=== PATIENT | female | born 1985 | race Caucasian/White ===

== ENCOUNTER 2017-10-31 08:00 | Outpatient (CLI) | payer OTHER | END 2017-10-31 08:01 | disposition home or self-care (01) | LOC: LAB.R 08:00 | PROVIDERS: ATTEND Obstetrics & Gynecology | DX: Z36.89 Encounter for other specified antenatal screening (principal) | CPT/HCPCS: 87081 ==

== ENCOUNTER 2017-11-25 22:01 | Inpatient (IN) | payer OTHER ==
[2017-11-25] MEDS ORDERED: SODIUM CHLORIDE FLUSH 0.9% 10 ML SYRINGE IVP PRN (22:20)
[2017-11-25] MEDS: LACTATED RINGERS 1,000 ML IV SCH ×2 (22:50→23:32)
[2017-11-25 22:52] LABS: BASOPHILS % (AUTO) 0.3 %; EOSINOPHILS # (AUTO) 0.1 10^3/uL (0.0-0.7); EOSINOPHILS % (AUTO) 1.2 %; HGB - HEMOGLOBIN 11.3 g/dL (12.0-16.0); LYMPHOCYTES # (AUTO) 2.5 10^3/uL (1.5-3.5); LYMPHOCYTES % (AUTO) 21.5 %; MEAN CORPUSCULAR HEMOGLOBIN 30.5 pg (27.0-31.0); MEAN CORPUSCULAR HGB CONC 33.8 g/dL (32.0-36.0); MEAN CORPUSCULAR VOLUME 90.2 fL (81.0-99.0); MEAN PLATELET VOLUME 8.9 fL (7.9-10.8); MONOCYTES # (AUTO) 0.6 10^3/uL (0.0-1.0); MONOCYTES % (AUTO) 5.1 %; NEUTROPHILS # (AUTO) 8.2 10^3/uL (1.5-6.6); NEUTROPHILS % (AUTO) 71.9 %; PLT - PLATELET COUNT 187 10^3/uL (130-450); RED CELL DISTRIBUTION WIDTH 13.7 % (12.0-15.0); WHITE BLOOD COUNT 11.4 x10^3/uL (4.8-10.8)
[2017-11-25] MEDS ORDERED: ROPIVACAINE 0.2% PF 10 ML VIAL EPI ONE (23:00)
[2017-11-25] MEDS ORDERED: OXYTOCIN/SODIUM CHLORIDE 250 ML IV ONE (23:11)
[2017-11-25] MEDS ORDERED: fent/BUPIV 2 MCG/0.125% 250 ML EP ONE (23:40)
[2017-11-25] MEDS ORDERED: LACTATED RINGERS 500 ML IV ONE (23:51)
[2017-11-25] MEDS ORDERED: METOCLOPRAMIDE 10 MG/2 ML VIAL IVP PRN (23:51)
[2017-11-25] MEDS ORDERED: diphenhydrAMINE INJ 50 MG/ML VIAL IVP PRN (23:51)
[2017-11-25] MEDS ORDERED: ONDANSETRON 4 MG/2 ML VIAL IVP PRN (23:51)
[2017-11-25] MEDS ORDERED: NALOXONE 0.4 MG/ML VIAL IVP PRN (23:51)
[2017-11-25] MEDS ORDERED: fent/BUPIV 2 MCG/0.125% 250 ML EP PRN (23:51)
[2017-11-25] MEDS ORDERED: ePHEDrine 50 MG/ML VIAL IVP PRN (23:51)
[2017-11-25] MEDS ORDERED: NALBUPHINE 20 MG/ML AMP IVP PRN (23:51)
[2017-11-26] MEDS ORDERED: OXYTOCIN/SODIUM CHLORIDE 250 ML IV ONE (00:17)
[2017-11-26] MEDS ORDERED: WITCH HAZEL/GLYCERIN 1 EACH MED..PAD TOP PRN (00:17)
[2017-11-26] MEDS ORDERED: HYDROCORTISONE/PRAMOXINE 10 GM PR PRN (00:17)
[2017-11-26] MEDS ORDERED: diphenhydrAMINE 25 MG CAPSULE PO PRN (00:17)
[2017-11-26] MEDS: IBUPROFEN 600 MG TABLET PO SCH ×4 (02:05→21:14)
[2017-11-26] MEDS ORDERED: SODIUM CHLORIDE FLUSH 0.9% 10 ML SYRINGE IVP SCH (06:00)
[2017-11-26] MEDS: ACETAMINOPHEN 500 MG TABLET PO SCH ×3 (06:08→22:00)
[2017-11-26] MEDS: LACTATED RINGERS 1,000 ML IV SCH ×2 (08:39→23:35)
[2017-11-26] MEDS ORDERED: SODIUM CHLORIDE FLUSH 0.9% 10 ML SYRINGE IVP ONE (08:41)
--- NOTE | 2017-11-26 09:41 | PROVIDER PROGRESS NOTE ---
Subjective - Prog Note Date Prog Note Date: 11/26/17 Prog Note Time: 09:00 - Subjective Pt reports feeling: Improved Subjective: Patient is up in bed and nursing without difficulty. She and her are happy with the outcome. Obvious bonding. No reported difficulties with nursing and vaginal bleeding has subsided. Overall she is recovering well from her delivery and will require 1 more day of supportive care. Objective - Vital Signs/Intake & Output Vital Signs: Vital Signs x48h Temp Pulse Resp BP Pulse Ox 11/26/17 08:24 97.7 F 76 16 122/70 100 11/26/17 03:45 88 20 128/71 99 11/26/17 02:50 98.2 F 71 20 123/68 97 11/26/17 01:45 78 20 107/65 Intake & Output: Intake & Output 11/23/17 11/24/17 11/25/17 11/26/17 23:59 23:59 23:59 23:59 Intake Total 1000 1750 Output Total 350 Balance 1000 1400 - Lab Results Fish Bones: 11/25/17 22:30 Other Labs: Lab Results x24hrs 11/25/17 Range/Units 22:30 WBC 11.4 H (4.8-10.8) x10^3/uL RBC 3.70 L (4.20-5.40) 10^6/uL Hgb 11.3 L (12.0-16.0) g/dL Hct 33.4 L (37.0-47.0) % MCV 90.2 (81.0-99.0) fL MCH 30.5 (27.0-31.0) pg MCHC 33.8 (32.0-36.0) g/dL RDW 13.7 (12.0-15.0) % Plt Count 187 (130-450) 10^3/uL MPV 8.9 (7.9-10.8) fL Neut # 8.2 H (1.5-6.6) 10^3/uL Lymph # 2.5 (1.5-3.5) 10^3/uL [place] # 0.6 (0.0-1.0) 10^3/uL Eos # 0.1 (0.0-0.7) 10^3/uL Baso # 0.0 (0.0-0.1) 10^3/uL Absolute Nucleated RBC 0.00 x10^3/uL Nucleated RBC % 0.0 /100WBC
[2017-11-26] MEDS: HYDROcod/ACETAM 5/325 MG TABLET PO PRN ×2 (18:57→23:42)
--- NOTE | 2017-11-26 20:02 | HISTORY & PHYSICAL EXAMINATION ---
DATE OF SERVICE: 11/25/2017 Physician: Live Delgado MD DATE OF ADMISSION: 11/25/2017. DIAGNOSIS: Term , active labor. HISTORY OF PRESENT ILLNESS: The patient is a 32-year-old , 2, para 1-0-0-1, woman at 39 weeks' 4 days' gestation who has had regular care at the [facility] and the [facility]. Care began at 30 weeks and proceeded in an uncomplicated fashion without concerns. LABS: Blood type O positive, antibody screen negative, rubella immune, hepatitis B surface antigen negative, HIV negative, hep C negative, RPR negative, GC chlamydia negative. Pap smear was ASCUS. Glucose challenge test normal at 107. CF screen negative. First was delivered at 41 weeks, yielding a living female infant weighing 3770 grams without problems. Currently, the patient has no symptoms of preeclampsia. She has had no recent illnesses, UTI symptoms or fever. PAST MEDICAL HISTORY: No chronic disease history. PAST SURGICAL HISTORY: Appendectomy in 2005, tonsillectomy 2013. FAMILY HISTORY: Diabetes. No inheritable disease history. SOCIAL HISTORY: A [employer] dependent. No drug, tobacco or alcohol use. REVIEW OF SYSTEMS CONSTITUTIONAL: Negative. HEENT: Negative. HEART: Negative. LUNGS: Negative. GASTROINTESTINAL: Negative. GENITOURINARY: Negative. Note: ASCUS Pap smear was investigated with a colposcopic biopsy and has spontaneously reverted to normal. MUSCULOSKELETAL: Negative. NEUROLOGIC: Negative. PHYSICAL EXAMINATION: GENERAL: Well groomed, pleasant. Evident labor pains. in attendance. HEENT: Supple neck, no thyromegaly. Dentition in good repair. LUNGS: Clear to auscultation. CARDIAC: Regular, no murmur, no gallop. BREASTS: No reported mass. Full. ABDOMEN: Nondistended. No hepatosplenomegaly. UTERUS: Appropriate size for term, about 39 cm. Normal resting tone. Moderate contractions every 3 minutes. External monitor strip 130-140, good variability, some accelerations, occasional variable deceleration, overall category 1 to category 2. EXTERNAL GENITALIA: No lesions. VAGINA: No blood or discharge or leaking fluid. CERVIX: 6 cm, +1 station, 80% effaced. EXTREMITIES: Minimal pedal edema. No finger edema. No rash. NEUROLOGIC: Grossly intact. Initial labs pending. ASSESSMENT AND PLAN: This is a term that has had essentially normal course. She is currently in active labor with a reassuring strip. She desires epidural. PLAN 1. Obtain a platelet count now in order to be ready for anesthesia. 2. Baseline labs. 3. Supportive care. TD: 11/26/2017 21:01
[2017-11-27] MEDS: IBUPROFEN 600 MG TABLET PO SCH ×3 (03:02→13:06)
[2017-11-27] MEDS: ACETAMINOPHEN 500 MG TABLET PO SCH ×2 (05:43→13:06)
--- NOTE | 2017-11-27 08:34 | PROCEDURE REPORT ---
DATE OF SERVICE: 11/25/2017 Physician: Live Delgado MD PRE-DELIVERY DIAGNOSES: 1. Term . 2. Active labor. POST-DELIVERY DIAGNOSES: 1. Term . 2. Active labor. 3. Grade 3 placenta. 4. Left arm compound presentation. PROCEDURE: Vaginal delivery over an intact perineum of a living female infant. HOUSE PAINTER: Live Delgado MD, FACOG, [facility] ANESTHESIA: Sy Joseph, certified nurse hot head machine operator; epidural. ESTIMATED BLOOD LOSS: 300 mL COMPLICATIONS: None. FINDINGS: At 2359 hours, a living female was born weighing 8lbs 1oz and scoring Apgars of 8/9. There was no trauma or congenital anomalies noted. There was a slight bruising of the head due to the rapid second stage of labor. Placenta was delivered intact with 3-vessel cord. Placenta was grade 3. Inspection of the female genital tract found no lacerations. Uterus responded well to massage and Pitocin. TECHNIQUE: Patient was admitted around 10:30 at 7 cm and given an epidural anesthetic. She progressed rapidly to complete and began to have the urge to push. When examined at 2340 hours, she was complete and +2 station. The patient assumed dorsal lithotomy position and was prepped and draped. She began to push with excellent effort and rapidly brought the head to the perineum. There was atraumatic . Shoulders were delivered without difficulty. left arm was in a compound presentation. Infant was placed on the maternal abdomen. Once the cord had begun to stop pulsating, it was doubly clamped and transected. Cord blood sample was sent. Delivery of the placenta was a bit slower, but completed at X time. Placenta was inspected and found to be grade 3. Uterus responded well to massage and Pitocin. Mother, child and father all bonded well. She began to nurse without difficulty. TD: 11/27/2017 09:33 [facility]
[2017-11-27] MEDS: HYDROcod/ACETAM 5/325 MG TABLET PO PRN ×2 (09:04→13:05)
[2017-11-27 10:01] VITALS: BP 122/70
--- NOTE | 2017-11-27 10:12 | Discharge Plan ---
Discharge Plan Disposition: 01 Home, Self Care Condition: Good Diet: Regular Activity Restrictions: No Restrictions Shower Restrictions: Yes Driving Restrictions: Yes Weight Bearing: Full Weight Additional Instructions or Follow Up instructions: Patient to avoid sitting on hard surfaces.She can self massage the levator plate muscles and the coccygeal tip through the vagina.Continue to take Motrin 600 every 6 hours [id number] for at least 10 days. Coccydynia will be reevaluated on her 2 week appointment No Smoking: If you smoke, Please STOP! Call for help. Follow-up with: Live Delgado MD [Provider Admit Priv/Credential] - Te Yanes MD [Primary Care Provider] -
--- NOTE | 2017-11-27 10:18 | PROVIDER PROGRESS NOTE ---
Subjective - General Admit Date: 11/25/17 Procedure Date: 11/26/17 Post Op Days: 1 Procedure Performed: Normal vaginal delivery without lacerations - Review of Systems Wound/Incisions: positive: Healing well Drain Type: 0 General: positive: No symptoms HEENT: positive: No symptoms Pulmonary: positive: No symptoms Cardiovascular: positive: No symptoms Gastrointestinal: positive: No symptoms Genitourinary: positive: No symptoms, Other (Feels sore but pain medication adequate) Musculoskeletal: positive: No symptoms Skin: positive: No symptoms Psychiatric: positive: No symptoms Objective - Patient Data Vital Signs: Vital Signs x48h Temp Pulse Resp BP Pulse Ox 11/27/17 09:53 99.0 F 74 16 122/70 98 Weight: Weight 11/25/17 11/26/17 11/27/17 23:59 23:59 23:59 Weight (kg) 110.677 kg Intake & Output: Intake and Output Totals x24h 11/25/17 11/26/17 11/27/17 23:59 23:59 23:59 Intake Total 1000 1750 Output Total 350 Balance 1000 1400 - Lab Results Lab Results: 11/25/17 22:30 - Current Medications Current Medications: Current Medications Generic Name Dose Route Start Last Admin Trade Name Freq PRN Reason Stop Dose Admin Acetaminophen 1,000 mg 11/26/17 01:00 11/27/17 05:43 Tylenol PO 1,000 mg Q8H JANINE Administration Acetaminophen/Hydrocodone Bitart 1 tab 11/26/17 00:17 11/27/17 09:04 [place] 5/325 PO 1 tab Q4HR PRN Administration PAIN Lactated Ringer's 1,000 mls @ 100 mls/hr 11/26/17 01:00 11/26/17 23:35 Lr IV Not Given .Q10H JANINE Ibuprofen 600 mg 11/26/17 01:00 11/27/17 09:04 Motrin PO 600 mg Q6H JANINE Administration Witch Bebe/Glycerin 1 each 11/26/17 00:17 11/26/17 06:09 Tucks TOP 1 each QID PRN Administration Hemorrhoids Exam - Exam Vital Signs: Vital Signs (72 hours) 11/25/17 11/25/17 11/26/17 22:34 23:15 00:12 Temperature 98.4 F Heart Rate [ 90 102 H 88 Apical] Heart Rate [ Monitoring electrodes] Respiratory 19 20 24 Rate Blood Pressure 139/77 H 139/77 H 123/69 [Right Brachial artery] O2 Saturation 99 100 99 11/26/17 11/26/17 11/26/17 00:20 00:30 00:45 Temperature Heart Rate [ 87 75 79 Apical] Heart Rate [ Monitoring electrodes] Respiratory 18 20 20 Rate Blood Pressure 119/73 115/58 L 127/63 [Right Brachial artery] O2 Saturation 99 100 99 11/26/17 11/26/17 11/26/17 01:00 01:15 01:30 Temperature Heart Rate [ 81 84 67 Apical] Heart Rate [ Monitoring electrodes] Respiratory 18 18 18 Rate Blood Pressure 125/68 118/57 L 119/85 H [Right Brachial artery] O2 Saturation 98 11/26/17 11/26/17 11/26/17 01:45 02:50 03:45 Temperature 98.2 F Heart Rate [ 78 71 88 Apical] Heart Rate [ Monitoring electrodes] Respiratory 20 20 20 Rate Blood Pressure 107/65 123/68 128/71 [Right Brachial artery] O2 Saturation 97 99 11/26/17 11/26/17 11/26/17 08:24 16:05 21:26 Temperature 97.7 F 98.8 F 98.1 F Heart Rate [ 76 85 71 Apical] Heart Rate [ Monitoring electrodes] Respiratory 16 16 18 Rate Blood Pressure 122/70 122/61 124/78 [Right Brachial artery] O2 Saturation 100 98 100 11/27/17 11/27/17 01:30 09:53 Temperature 98.8 F 99.0 F Heart Rate [ 84 Apical] Heart Rate [ 74 Monitoring electrodes] Respiratory 18 16 Rate Blood Pressure 109/64 122/70 [Right Brachial artery] O2 Saturation 98 98 General: Alert, Oriented x3 HEENT: Mucous membr. moist/pink Abdomen: Soft, No tenderness, Other (Uterus 17 weeks size firm nontender) Extremities: No edema, Other (Lower extremity varicosities remaining but less prominent) Skin: No rashes Neurological: Normal speech, Normal tone, Sensation intact Psych/Mental Status: Mental status NL, Mood NL Assessment/Plan - Assessment/Plan Assessment: Patient recovering normally from delivery. No complaints of earache currently. Will medicate her known vaginal candidiasis. Plan: Supportive care, Diflucan 100 mg daily
[2017-11-27] MEDS ORDERED: FLUCONAZOLE 100 MG TABLET PO SCH (11:00)
--- NOTE | 2017-11-27 14:51 | Labor Flowsheet ---
Labor Flowsheet Datetime Report Generated by CPN: 11/27/2017 14:51 Datetime: 11/27/2017 08:54 VITAL SIGNS NBP Sys/Jazmine/Mean (mmHg): 122 : 70 : 82 Pulse: 76 LaborFlag: Labor Datetime: 11/26/2017 04:00 Epidural Procedure Other: Cath Removed; Cath Intact Datetime: 11/26/2017 00:55 SpO2 (%): 100 Datetime: 11/25/2017 23:58 Pushing Position: Pushing with Contractions Pushing Progress: Descent with Pushing; Perineal Bulging; Presenting Part Visible Datetime: 11/25/2017 23:57 STAGE 2 Pushing: Coached on Pushing Datetime: 11/25/2017 23:55 ASSESSMENT A Monitor Mode: External US FHR Baseline Rate : 160 FHR Baseline Changes: Tachycardia Variability: Moderate 6-25 bpm Decelerations: None; Variable Actions for Decelerations: Other (Annotations: positioned for pushing) Category: Category II Datetime: 11/25/2017 23:53 Provider Reviewed Strip: Yes TEACHING Instructional Method: Verbal; Patient Instructed; Family/Support Person Instructed; Verbalized Unde rstanding Plan of Care: Plan of Care Discussed; Vaginal Delivery COMMUNICATION Communication: Provider at Bedside Provider Notified (Name): Dr Donalduer Notification Reason: Status Update; Labor Status Communication Comments: here for delivery Datetime: 11/25/2017 23:50 Accelerations: 15X15 VAGINAL EXAM Dilatation (cm): 10.0 Effacement (%): 100 Station: 1 Exam by: [facility] Vaginal Exam Comments: no urge to push; comfortable with epidural; will notify Dr Delgado Datetime: 11/25/2017 23:45 Temperature (C): 37.1 Datetime: 11/25/2017 23:40 Membrane Status: Ruptured Membranes Rupture Method: Spontaneous Amniotic Fluid Color: Clear Amniotic Fluid Amount: Small Amniotic Fluid Odor: Normal Membrane Comments: SROM when repositioning pt to side lying follwoing epid placement Datetime: 11/25/2017 23:30 UTERINE ACTIVITY Monitor Mode: External Monitor Interventions for UA: [place] Adjusted Frequency (min): 4-5 Quality: Strong Duration (sec): 60-70 Pattern: Normal: <= 5 Contractions in 10 Minutes Resting Tone (Palpate): Relaxed Monitor Interventions for FHR: Ultrasound Adjusted PAIN Pain Scale: 0 Pain Presence: None/Denies Pain Type: N/A Pain Goal: 5 Pain Relief Measures: Epidural Given Pain Coping: Talking Through Contractions Anesthesia Level Check: T10- Umbilicus Datetime: 11/25/2017 23:28 Epidural Procedure: Loading Dose Datetime: 11/25/2017 23:24 ANESTHESIA Anesthesia Plans: Epidural Epidural Positioning: Sitting Datetime: 11/25/2017 23:10 PATIENT CARE Oxygen Method: Room Air Anesthesia Comments: Time out completed; consent signed for epidural Pain Management: Epidural Datetime: 11/25/2017 22:45 Stage of : Labor Pain Location: Abdomen; Back MATERNAL ASSESSMENT Level of Consciousness: Fully Conscious DTR's/Clonus: DTRs 2+; No Clonus Headache: Denies Breath Sounds, Left: Clear and Equal Breath Sounds, Right: Clear and Equal Nausea/Vomiting: Denies RUQ Epigastric Pain: Denies
--- NOTE | 2017-11-28 12:56 | DISCHARGE SUMMARY ---
Physician: Live Delgado MD DATE OF ADMISSION: 11/25/2017 DATE OF DISCHARGE: 11/27/2017 DIAGNOSES 1. Term (39 weeks 4 days). 2. Active labor. 3. Successful vaginal delivery. 4. Postdelivery coccydynia (history of coccygeal fracture on last delivery). 5. Left arm compound presentation. 6. Grade III placenta. PROCEDURE: Vaginal delivery over intact perineum of a living female . COMPLICATIONS: None. HISTORY: The patient is a 32-year-old , 2, para 1-0-0-1, who presented in active labor at 34 weeks 4 days' gestation. She had been kevin for 4 hours prior to presentation and had no rupture of membranes. Basic labs: Blood type O positive, antibody screen negative, rubella immune, hepatitis B surface antigen negative, HIV negative, hep C negative, RPR negative, glucola challenge normal (107), and GBS negative. Reference my typewritten H and P, plus office notes on digiChart. HOSPITAL COURSE: The patient was evaluated and found to be 6 cm and +1 station with 80% effacement. She had a category I strip. She requested an epidural, which was uneventfully placed. She continued to progress until completion. She pushed with good effort, bringing the head smoothly to the perineum with an atraumatic . There was a left arm compound presentation that was not a factor. There was no shoulder dystocia. weighed 8 pounds 1 ounce and scored Apgars of 8/9. There were no perineal or vaginal lacerations. Post delivery, the patient did very well, nursing without difficulty. She was able to ambulate and do both self-care and care functions. She did note coccydynia. Her first involved a fracture of the coccyx and it is uncertain whether she had lingering arthritis. Currently imaging is not required until the pain lasts 2 months. We discussed perineal massage of the levator plate and analgesics. She is to avoid sitting on hard surfaces until the pain resolves. There may be a role for manipulation and trigger point injections later if the pain is refractory. This will be an item of interest on the 2-week visit. The patient was given complete warning signs and callback instructions. DISCHARGE MEDICATIONS Included: 1. Motrin 600 q.6 hours. 2. [place] 16 tabs p.r.n. breakthrough pain. 3. vitamins and iron. Follow up appointment in 2 weeks. cc: [facility], TD: 11/28/2017 09:48 MTDD
== END 2017-11-27 14:30 | disposition home or self-care (01) | DRG 774 ==
LOC: WFO 22:01 → FBP 22:03 → WFO 22:19 → FBP 22:20
PROVIDERS: ADMIT Obstetrics & Gynecology; ATTEND Obstetrics & Gynecology
PROC: 10D07Z8 Extraction of Products of Conception, Other, Via Natural or Artificial Opening (ICD-10-PCS; principal; 2017-11-25)
DX: O32.6XX0 Maternal care for compound presentation, not applicable or unspecified (principal); O90.89 Other complications of the puerperium, not elsewhere classified; O71.6 Obstetric damage to pelvic joints and ligaments; Z37.0 Single live birth; O43.893 Other placental disorders, third trimester; Z3A.39 39 weeks gestation of pregnancy
CPT/HCPCS: 85025; 99213